=== PATIENT | female | born 1960 | race Hispanic/Latino ===

== ENCOUNTER 2020-02-25 08:18 | Observation (INO) | payer MEDICARE ==
[2020-02-25] MEDS ORDERED: ASPIRIN 325 MG TAB PO ONE ×2 (08:32→08:33)
[2020-02-25] MEDS ORDERED: NITROGLYCERIN 2% OINT 1 GM TP ONE (08:33)
--- NOTE | 2020-02-25 08:51 | XRay Report ---
CHEST 1 VIEW 02/25/2020 7:43 AM INDICATION / CLINICAL INFORMATION: Chest Pain. COMPARISON: None available. FINDINGS: SUPPORT DEVICES: None. HEART / MEDIASTINUM: No significant abnormality. LUNGS / PLEURA: No significant pulmonary or pleural abnormality. No pneumothorax. ADDITIONAL FINDINGS: No significant additional findings. IMPRESSION: 1. No acute findings. Signer Name: Gurpreet Decker MD Signed: 02/25/2020 8:46 AM Workstation Name: [id number]
[2020-02-25 09:18] LABS: Basophils % (Auto) 0.8 % (0.0-1.8); Eosinophils % (Auto) 0.8 % (0.0-4.3); Hematocrit 40.1 % (30.3-42.9); Hemoglobin 13.4 gm/dl (10.1-14.3); Lymphocytes # (Auto) 0.7 K/mm3 (1.2-5.4); Mean Corpuscular HGB Conc 33 % (30-34); Mean Corpuscular Volume 94 fl (79-97); Monocytes # (Auto) 0.2 K/mm3 (0.0-0.8); Monocytes % (Auto) 5.4 % (0.0-7.3); Platelet Count 122 K/mm3 (140-440); Red Blood Count 4.27 M/mm3 (3.65-5.03); Red Cell Distribution Width 12.6 % (13.2-15.2)
[2020-02-25 09:27] LABS: Alanine Aminotransferase 11 units/L (7-56); Albumin 3.9 g/dL (3.9-5); BUN/Creatinine Ratio 23; Blood Urea Nitrogen 14 mg/dL (7-17); Calcium 9.1 mg/dL (8.4-10.2); Hemolysis Index 14
[2020-02-25 09:28] LABS: Bilirubin,Direct < 0.2 mg/dL (0-0.2); INR 1.05 (0.87-1.13)
[2020-02-25 09:29] LABS: Partial Thromboplastin Time 24.1 Sec. (24.2-36.6)
--- NOTE | 2020-02-25 09:54 | Emergency Department Report ---
ED Chest Pain HPI - General Chief Complaint: Chest Pain Stated Complaint: STEMI Time Seen by Provider: 02/25/20 08:31 Source: patient Mode of arrival: Stretcher Limitations: Other - History of Present Illness Initial Comments: This is a 59-year old female who appears to be somewhat mentally challenged [facility] with [facility]. She can only tell me that it hurts. She has had some occasional cough. I cannot detect a pleuritic component to the pain when speaking with her. She has not been vomiting. She does not report acute sweating. She was transported via EMS with an EKG which shows early repolarization but not ST elevation NH. This EKG was repeated in the emergency department and again did not show evidence for ST elevation NH. Patient states that she has never had chest pain before. She denies a prior history of work-up. She is diabetic. She denies prior history of DVT or PE. MD Complaint: chest pain -: Gradual, hour(s) Onset: during rest Pain Location: substernal Pain Radiation: other (Difficult to discern) Severity: moderate Severity scale (0 -10): 5 Quality: other (Patient does not characterize) Consistency: constant Improves With: nothing Worsens With: nothing re: dyspnea (Possibly). denies: nausea, vomting, diaphoresis, sense of impending doom Other Symptoms: cough. denies: fever, syncope, rash, acid taste in mouth, leg swelling Treatments Prior to Arrival: none Aspirin use within the Past 7 Days: (0) No - Related Data Allergies Allergy/AdvReac Type Severity Reaction Status Date / Time peanut Allergy Unknown Verified 02/25/20 08:38 Heart Score - HEART Score History: Slightly suspicious EKG: Non-specific Age: 45-65 Risk factors: > 3 risk factors or hx of atherosclerotic disease Troponin: < normal limit HEART Score: 4 - Critical Actions Critical Actions: 4-6 pts:12-16.6% risk of adverse cardiac event. Should be admitted ED Review of Systems ROS: Stated complaint: STEMI Other details as noted in HPI Constitutional: denies: chills, fever Eyes: denies: eye pain, eye discharge, vision change ENT: denies: ear pain, throat pain Respiratory: denies: cough, wheezing Cardiovascular: denies: chest pain, palpitations Endocrine: no symptoms reported Gastrointestinal: denies: abdominal pain, nausea, diarrhea Genitourinary: denies: urgency, dysuria, discharge Musculoskeletal: denies: back pain, joint swelling, arthralgia Skin: denies: rash, lesions Neurological: denies: headache, weakness, paresthesias Psychiatric: denies: anxiety, depression Hematological/Lymphatic: denies: easy bleeding, easy bruising ED Past Medical Hx - Past Medical History Previous Medical History?: Yes Hx Diabetes: Yes - Social History Smoking Status: Never Smoker Substance Use Type: None ED Physical Exam - General Limitations: Other ED Course Vital Signs 02/25/20 02/25/20 02/25/20 08:27 08:29 08:30 Temperature 97.5 F L Pulse Rate 71 67 Respiratory 11 L 12 17 Rate Blood Pressure 118/60 Blood Pressure 121/59 [Right] O2 Sat by Pulse 97 96 Oximetry 02/25/20 02/25/20 08:33 08:47 Temperature Pulse Rate 67 Respiratory 12 Rate Blood Pressure 118/60 Blood Pressure [Right] O2 Sat by Pulse Oximetry - Reevaluation(s) Reevaluation #1: Nurse informs me patient resting comfortably and not complaining of chest pain. She will be admitted for further evaluation. 02/25/20 09:59 JANENE score - Janene Score Age > 65: (0) No Aspirin use within the Past 7 Days: (0) No 3 or more CAD Risk Factors: (1) Yes 2 or more Angina events in past 24 hrs: (0) No Known CAD with more than 50% Stenosis: (0) No Elevated Cardiac Markers: (0) No ST Deviation Greater than 0.5mm: (1) Yes JANENE Score: 2 ED Medical Decision Making - Lab Data Result diagrams: 02/25/20 08:51 02/25/20 08:51 Laboratory Results - last 24 hr 02/25/20 02/25/20 02/25/20 08:51 08:51 08:51 WBC 3.8 L RBC 4.27 Hgb 13.4 Hct 40.1 MCV 94 MCH 31 MCHC 33 RDW 12.6 L Plt Count 122 L Lymph % (Auto) 19.0 Story % (Auto) 5.4 Eos % (Auto) 0.8 Baso % (Auto) 0.8 Lymph # 0.7 L Story # 0.2 Eos # 0.0 Baso # 0.0 Seg Neutrophils % 74.0 H Seg Neutrophils # 2.8 PT 13.8 INR 1.05 APTT 24.1 L D-Dimer 139.02 Sodium 133 L Potassium 4.2 Chloride 98.3 Carbon Dioxide 22 Anion Gap 17 BUN 14 Creatinine 0.6 L Estimated GFR > 60 BUN/Creatinine Ratio 23 Glucose 178 H Calcium 9.1 Magnesium 1.90 Total Bilirubin 0.30 Direct Bilirubin < 0.2 AST 11 ALT 11 Alkaline Phosphatase 90 Total Creatine Kinase 59 CK-MB (CK-2) 2.0 CK-MB (CK-2) Rel Index 3.3 Troponin T < 0.010 NT-Pro-B Natriuret Pep 28.57 Total Protein 6.2 L Albumin 3.9 Albumin/Globulin Ratio 1.7 - EKG Data -: EKG Interpreted by Me EKG shows normal: sinus rhythm, axis, intervals, QRS complexes, ST-T waves Rate: normal - EKG Data Interpretation: nonspecific ST-T wave juan francisco - Radiology Data Radiology results: report reviewed, image reviewed IMPRESSION: 1. No acute findings. Critical care attestation.: If time is entered above; I have spent that time in minutes in the direct care of this critically ill patient, excluding procedure time. ED Disposition Clinical Impression: Chest pain Qualifiers: Chest pain type: precordial pain Qualified Code(s): R07.2 - Precordial pain Type 2 diabetes mellitus with hyperglycemia Qualifiers: Diabetes mellitus assisted insulin use: without assisted use Qualified Code(s): E11.65 - Type 2 diabetes mellitus with hyperglycemia Disposition: OP ADMIT IP TO THIS HOSP Is pt being admited?: Yes Does the pt Need Aspirin: Yes Condition: Stable Instructions: Chest Pain (ED), Diabetes Mellitus Type 2 in Adults (ED) Time of Disposition: 10:00
--- NOTE | 2020-02-25 11:06 | History and Physical Report ---
History of Present Illness Date of examination: 02/25/20 Date of admission: 02/25/20 10:26 Chief complaint: Chest pain History of present illness: Patient is 59 yo with hypertension, hyperlipidemia, diabetes. [facility] is [facility] and has some cognitive impairment and cannot give a good history. She presents with chest pain, left sided, 7 out of 10. No shortness of breath. She denies cough. She was seen and evaluated in Emergency Department. Initial Troponin was normal. She has multiple risk factors. Will place on Observation in Telemetry to rule out acute coronary syndrome. Past History Past Medical History: diabetes, hypertension, hyperlipidemia Past Surgical History: Other (Unknown) Social history: IV drug use, other (Lives in [facility]) Family history: no significant family history Medications and Allergies Allergies Allergy/AdvReac Type Severity Reaction Status Date / Time peanut Allergy Unknown Verified 02/25/20 08:38 Home Medications Medication Instructions Recorded Confirmed Last Taken Type Aspirin EC [Halfprin EC] 81 mg PO QDAY 02/25/20 02/25/20 02/25/20 History AtorvaSTATin 10 mg PO QHS 02/25/20 02/25/20 02/24/20 History Metformin HCl [Metformin HCl ER] 500 mg PO DAILY 02/25/20 02/25/20 02/25/20 History Metoprolol Xl [Metoprolol 50 mg PO DAILY 02/25/20 02/25/20 02/25/20 History SUCCINATE ER TAB] Omeprazole 20 mg PO DAILY 02/25/20 02/25/20 02/25/20 History Sennosides/Docusate Sodium 1 each PO 02/25/20 02/24/20 History [Senexon-S 50-8.6 mg Tablet] Vitamin E 400 unit PO 02/25/20 02/25/20 History Zestoretic 10-12.5 mg Tablet 1 tab PO DAILY 02/25/20 02/25/20 02/25/20 History Review of Systems All systems: negative (No fever, no cough, no SOB. All other systems reviewed and are negative.) Exam - Physical Exam Narrative exam: GEN: Not in acute distress, lying in bed HEENT: Normocephalic, atraumatic, Neck: supple, No JVD Lungs: clear to auscultation,, no crackles heart;S1 and S2 reg, no murmurs, rubs or gallop Abd:soft, non tender, non distended, normal bowel sounds, Ext: No edema, no clubbing, no cyanosis, Neuro: Awake,alert,oriented X3 , no focal signs, - Constitutional Vitals: Temp Pulse Resp BP Pulse Ox 97.5 F L 64 10 L 127/55 99 02/25/20 08:29 02/25/20 10:31 02/25/20 10:31 02/25/20 10:31 02/25/20 10:31 Results - Labs CBC & Chem 7: 02/26/20 06:01 02/26/20 06:01 Labs: Abnormal lab results 02/25/20 02/25/20 02/25/20 Range/Units 08:51 08:51 08:51 WBC 3.8 L (4.5-11.0) K/mm3 RDW 12.6 L (13.2-15.2) % Plt Count 122 L (140-440) K/mm3 Lymph # 0.7 L (1.2-5.4) K/mm3 Seg Neutrophils % 74.0 H (40.0-70.0) % APTT 24.1 L (24.2-36.6) Sec. Sodium 133 L (137-145) mmol/L Creatinine 0.6 L (0.7-1.2) mg/dL Glucose 178 H (65-100) mg/dL Total Protein 6.2 L (6.3-8.2) g/dL Assessment and Plan Chest pain To r/o acute coronary syndrome Admit to Telemetry Aspirin daily stress test in am Nitroglycerin prn Diabetes mellitus type 2 Accucheck qac and hs resume metformin Hyponatremia repeat in am Cognitive impairment. details unclear. She lives in a [facility] Full code status
[2020-02-25] MEDS ORDERED: MORPHINE 2 MG/1 ML INJ IV PRN (12:44)
[2020-02-25] MEDS ORDERED: ONDANSETRON 4 MG/2 ML INJ IV PRN (12:44)
[2020-02-25] MEDS ORDERED: ACETAMINOPHEN 325 MG TAB PO PRN (12:44)
[2020-02-25] MEDS ORDERED: ALBUTEROL 2.5 MG/3 ML NEBU IH PRN (12:44)
[2020-02-25] MEDS ORDERED: NITROGLYCERIN 0.4 MG TAB SUBL SL PRN (12:47)
[2020-02-25] MEDS ORDERED: NON-FORMULARY EACH (Omeprazole [Omeprazole] 20 MG) PO SCH (14:00)
[2020-02-25] MEDS: PANTOPRAZOLE 20 MG TAB PO SCH (14:27)
[2020-02-25] MEDS: METOPROLOL SUCCINATE XL 50 MG TAB PO SCH (14:27)
[2020-02-25] MEDS: metFORMIN XR 500MG TAB PO SCH (15:28)
[2020-02-26 06:40] LABS: Basophils % (Auto) 0.7 % (0.0-1.8); Eosinophils # (Auto) 0.1 K/mm3 (0.0-0.4); Hematocrit 38.2 % (30.3-42.9); Lymphocytes # (Auto) 1.4 K/mm3 (1.2-5.4); Lymphocytes % (Auto) 22.1 % (13.4-35.0); Mean Corpuscular HGB Conc 34 % (30-34); Mean Corpuscular Volume 92 fl (79-97); Monocytes # (Auto) 0.4 K/mm3 (0.0-0.8); Monocytes % (Auto) 6.2 % (0.0-7.3); Platelet Count 156 K/mm3 (140-440); Red Blood Count 4.15 M/mm3 (3.65-5.03); Red Cell Distribution Width 12.5 % (13.2-15.2)
[2020-02-26 06:56] LABS: BUN/Creatinine Ratio 28; Blood Urea Nitrogen 17 mg/dL (7-17); Calcium 8.9 mg/dL (8.4-10.2); Hemolysis Index 7
[2020-02-26] MEDS: metFORMIN XR 500MG TAB PO SCH (08:50)
[2020-02-26] MEDS: METOPROLOL SUCCINATE XL 50 MG TAB PO SCH (09:44)
[2020-02-26] MEDS: ASPIRIN EC 81 MG TAB PO SCH (09:44)
[2020-02-26] MEDS ORDERED: ASPIRIN 81 MG TAB CHEW PO SCH (10:00)
--- NOTE | 2020-02-26 10:34 | Progress Note ---
Assessment and Plan Assessment and plan: Chest pain To r/o acute coronary syndrome Admit to Telemetry Aspirin daily stress test in am Nitroglycerin prn Diabetes mellitus type 2 Accucheck qac and hs resume metformin Hyponatremia Na 127 today start ivf - NS Cognitive impairment. details unclear. [facility] Full code status 02/26/20 patient feels better. No chest pain currently. For stress test in am. Start NS for hyponatremia of 127. History Interval history: Feels better No chest pain today Hospitalist Physical - Physical exam Narrative exam: GEN: Not in acute distress, lying in bed HEENT: Normocephalic, atraumatic, Neck: supple, No JVD Lungs: clear to auscultation,, no crackles heart;S1 and S2 reg, no murmurs, rubs or gallop Abd:soft, non tender, non distended, normal bowel sounds, Ext: No edema, no clubbing, no cyanosis, Neuro: Awake,alert, no focal signs, cognitive impairment - Constitutional Vitals: Temp Pulse Resp BP Pulse Ox 97.0 F L 66 20 137/75 97 02/26/20 07:10 02/26/20 09:44 02/26/20 07:10 02/26/20 07:10 02/26/20 07:10 JANENE score - Janene Score Age > 65: (0) No Aspirin use within the Past 7 Days: (0) No 3 or more CAD Risk Factors: (1) Yes 2 or more Angina events in past 24 hrs: (0) No Known CAD with more than 50% Stenosis: (0) No Elevated Cardiac Markers: (0) No ST Deviation Greater than 0.5mm: (1) Yes JANENE Score: 2 Results - Labs CBC & Chem 7: 02/26/20 06:01 02/26/20 06:01 Labs: Laboratory Last Values WBC 6.2 K/mm3 (4.5-11.0) 02/26/20 06:01 RBC 4.15 M/mm3 (3.65-5.03) 02/26/20 06:01 Hgb 13.0 gm/dl (10.1-14.3) 02/26/20 06:01 Hct 38.2 % (30.3-42.9) 02/26/20 06:01 MCV 92 fl (79-97) 02/26/20 06:01 MCH 31 pg (28-32) 02/26/20 06:01 MCHC 34 % (30-34) 02/26/20 06:01 RDW 12.5 % (13.2-15.2) L 02/26/20 06:01 Plt Count 156 K/mm3 (140-440) 02/26/20 06:01 Lymph % (Auto) 22.1 % (13.4-35.0) 02/26/20 06:01 [place] % (Auto) 6.2 % (0.0-7.3) 02/26/20 06:01 Eos % (Auto) 1.0 % (0.0-4.3) 02/26/20 06:01 Baso % (Auto) 0.7 % (0.0-1.8) 02/26/20 06:01 Lymph # 1.4 K/mm3 (1.2-5.4) 02/26/20 06:01 [place] # 0.4 K/mm3 (0.0-0.8) 02/26/20 06:01 Eos # 0.1 K/mm3 (0.0-0.4) 02/26/20 06:01 Baso # 0.0 K/mm3 (0.0-0.1) 02/26/20 06:01 Seg Neutrophils % 70.0 % (40.0-70.0) 02/26/20 06:01 Seg Neutrophils # 4.3 K/mm3 (1.8-7.7) 02/26/20 06:01 PT 13.8 Sec. (12.2-14.9) 02/25/20 08:51 INR 1.05 (0.87-1.13) 02/25/20 08:51 APTT 24.1 Sec. (24.2-36.6) L 02/25/20 08:51 D-Dimer 139.02 ng/mlDDU (0-234) 02/25/20 08:51 Sodium 127 mmol/L (137-145) L 02/26/20 06:01 Potassium 4.5 mmol/L (3.6-5.0) 02/26/20 06:01 Chloride 95.6 mmol/L (98-107) L 02/26/20 06:01 Carbon Dioxide 23 mmol/L (22-30) 02/26/20 06:01 Anion Gap 13 mmol/L 02/26/20 06:01 BUN 17 mg/dL (7-17) 02/26/20 06:01 Creatinine 0.6 mg/dL (0.7-1.2) L 02/26/20 06:01 Estimated GFR > 60 ml/min 02/26/20 06:01 BUN/Creatinine Ratio 28 % 02/26/20 06:01 Glucose 113 mg/dL (65-100) H 02/26/20 06:01 POC Glucose 130 (70-105) H 02/26/20 07:25 Calcium 8.9 mg/dL (8.4-10.2) 02/26/20 06:01 Magnesium 1.90 mg/dL (1.7-2.3) 02/25/20 08:51 Total Bilirubin 0.30 mg/dL (0.1-1.2) 02/25/20 08:51 Direct Bilirubin < 0.2 mg/dL (0-0.2) 02/25/20 08:51 AST 11 units/L (5-40) 02/25/20 08:51 ALT 11 units/L (7-56) 02/25/20 08:51 Alkaline Phosphatase 90 units/L (35-129) 02/25/20 08:51 Total Creatine Kinase 59 units/L (30-135) 02/25/20 08:51 CK-MB (CK-2) 2.0 ng/mL (0.0-4.0) 02/25/20 08:51 CK-MB (CK-2) Rel Index 3.3 (0-4) 02/25/20 08:51 Troponin T < 0.010 ng/mL (0.00-0.029) 02/25/20 19:07 NT-Pro-B Natriuret Pep 28.57 pg/mL (0-900) 02/25/20 08:51 Total Protein 6.2 g/dL (6.3-8.2) L 02/25/20 08:51 Albumin 3.9 g/dL (3.9-5) 02/25/20 08:51 Albumin/Globulin Ratio 1.7 % 02/25/20 08:51 Maharaj/IV: Voiding Method Bedside Commode IV Catheter Type [Right INT / Saline Lock Forearm] Active Medications - Current Medications Current Medications: Generic Name Dose Route Start Last Admin Trade Name Freq PRN Reason Stop Dose Admin Acetaminophen 650 mg 02/25/20 12:44 02/25/20 21:36 Tylenol PO 650 mg Q4H PRN Administration Pain MILD(1-3)/Fever >100.5/[place] Albuterol 2.5 mg 02/25/20 12:44 Proventil IH Q4HRT PRN Shortness Of Breath Aspirin 81 mg 02/26/20 10:00 02/26/20 09:44 Halfprin Ec PO 81 mg QDAY JENNIFER Administration Atorvastatin Calcium 10 mg 02/25/20 22:00 02/25/20 21:36 Atorvastatin PO 10 mg QHS JENNIFER Administration Sodium Chloride 1,000 mls @ 75 mls/hr 02/26/20 08:00 Nacl 0.9% 1000 Ml IV DIRECT JENNIFER Metformin HCl 500 mg 02/25/20 14:00 02/26/20 08:50 Glucophage Xr PO 500 mg QAMDIAB JENNIFER Administration Metoprolol Succinate 50 mg 02/25/20 14:00 02/26/20 09:44 Metoprolol Xl PO 50 mg DAILY JENNIFER Administration Morphine Sulfate 2 mg 02/25/20 12:44 Morphine IV Q4H PRN Pain, Moderate (4-6) Nitroglycerin 0.4 mg 02/25/20 12:47 Nitrostat SL Q5M PRN Chest Pain Ondansetron HCl 4 mg 02/25/20 12:44 Zofran IV Q8H PRN Nausea And Vomiting Pantoprazole Sodium 20 mg 02/25/20 14:00 02/25/20 14:27 Protonix PO 20 mg QDAY JENNIFER Administration Sodium Chloride 10 ml 02/25/20 22:00 02/26/20 09:46 Sodium Chloride Flush Syringe 10 Ml IV 10 ml BID JENNIFER Administration Sodium Chloride 10 ml 02/25/20 12:44 Sodium Chloride Flush Syringe 10 Ml IV PRN PRN LINE FLUSH
[2020-02-26] MEDS: PANTOPRAZOLE 20 MG TAB PO SCH ×2 (11:52→11:54)
[2020-02-26] MEDS: SODIUM CHLORIDE 0.9% 1000 ML 1,000 ML IV SCH ×2 (11:54→22:33)
[2020-02-26 16:38] LABS: Amphetamine Screen,Urine PRESUMPTIVE NEGATIVE; Benzodiazepines Screen,Urine PRESUMPTIVE NEGATIVE; Cannabinoid Screen,Urine PRESUMPTIVE NEGATIVE; Cocaine Screen,Urine PRESUMPTIVE NEGATIVE; Methadone Screen,Urine PRESUMPTIVE NEGATIVE; Opiate Screen,Urine PRESUMPTIVE NEGATIVE
[2020-02-27 04:37] LABS: BUN/Creatinine Ratio 22; Blood Urea Nitrogen 13 mg/dL (7-17); Calcium 8.7 mg/dL (8.4-10.2); Hemolysis Index 9
[2020-02-27] MEDS ORDERED: REGADENOSON 0.4 MG/5 ML INJ IV ONE ×2 (07:55→08:00)
[2020-02-27] MEDS: metFORMIN XR 500MG TAB PO SCH (08:26)
[2020-02-27 10:57] VITALS: BP 146/66
--- NOTE | 2020-02-27 11:37 | Discharge Summary ---
Providers - Providers Date of Admission: 02/25/20 10:26 Date of discharge: 02/27/20 Attending physician: SUKHDEEP CARMONA 02/25/20 Consult to Cardiac Rehabilitation [CONS] Routine Reason For Exam: Phase I Primary care physician: CANT HOOKER Hospitalization Condition: Stable Exam - Constitutional Vitals: Temp Pulse Resp BP Pulse Ox 97.5 F L 57 L 16 146/66 94 02/27/20 04:09 02/27/20 04:09 02/27/20 04:09 02/27/20 10:07 02/27/20 04:09 Plan Activity: advance as tolerated Diet: low fat, low cholesterol, diabetic Plan of Treatment: 1.Follow up with PCP in 1 week. Follow up with: PRIMARY CARE, [Primary Care Provider] - 3-5 Days
[2020-02-27] MEDS: METOPROLOL SUCCINATE XL 50 MG TAB PO SCH (11:52)
[2020-02-27] MEDS: ASPIRIN EC 81 MG TAB PO SCH (11:53)
[2020-02-27] MEDS: PANTOPRAZOLE 20 MG TAB PO SCH (11:53)
== END 2020-02-27 18:00 | disposition home or self-care (01) ==
LOC: ED 08:18 → 4A 10:26
PROVIDERS: ADMIT Internal Medicine; ATTEND Internal Medicine
DX: R07.89 Other chest pain (principal); E11.65 Type 2 diabetes mellitus with hyperglycemia; E87.1 Hypo-osmolality and hyponatremia; G31.84 Mild cognitive impairment of uncertain or unknown etiology; I10 Essential (primary) hypertension; E78.5 Hyperlipidemia, unspecified; Z79.82 Long term (current) use of aspirin; Z79.84 Long term (current) use of oral hypoglycemic drugs; Z79.899 Other long term (current) drug therapy; Z91.010 Allergy to peanuts
CPT/HCPCS: 36415; 71045; 78452; 80048; 80076; 80307; 82550; 82553; 82962; 83735; 83880; 84484; 85025; 85379; 85610; 85730; 93005; 93017; 96360; 96361; 99284; A9270; A9502; G0378; J2785; J7030